=== PATIENT | male | born 1965 | race Caucasian/White ===

== ENCOUNTER 2016-05-30 09:59 | Emergency (ER) | payer MEDICARE, OTHER ==
[2016-05-30 10:46] LABS: RED BLOOD COUNT 5.44 M/UL (4.20-5.50); WHITE BLOOD COUNT 8.9 K/UL (4.5-11.0)
[2016-05-30 11:10] LABS: BUN/CREATININE RATIO 30 (0-10)
== END 2016-05-30 16:45 | disposition home or self-care (01) ==
LOC: ER1 09:59
PROVIDERS: Physician Assistant Medical
DX: L02.213 Cutaneous abscess of chest wall (principal); E11.65 Type 2 diabetes mellitus with hyperglycemia; I10 Essential (primary) hypertension; F17.290 Nicotine dependence, other tobacco product, uncomplicated; Z79.84 Long term (current) use of oral hypoglycemic drugs; Z79.899 Other long term (current) drug therapy
CPT/HCPCS: 10061; 36415; 80053; 82009; 82800; 82962; 85025; 87070; 87077; 87186; 87205; 96360; 96361; 96372; 99283; J1815; J7030

== ENCOUNTER → 2021-06-18 | Outpatient (CLI) | payer MEDICARE, OTHER | LOC: WCC 10:15 | DX: L89.154 Pressure ulcer of sacral region, stage 4 (principal); I95.9 Hypotension, unspecified; E11.622 Type 2 diabetes mellitus with other skin ulcer; N17.9 Acute kidney failure, unspecified; N20.0 Calculus of kidney; N15.1 Renal and perinephric abscess; G47.30 Sleep apnea, unspecified; I10 Essential (primary) hypertension; E11.36 Type 2 diabetes mellitus with diabetic cataract; H26.9 Unspecified cataract; E11.40 Type 2 diabetes mellitus with diabetic neuropathy, unspecified; Z79.4 Long term (current) use of insulin ==

== ENCOUNTER → 2021-06-22 | Outpatient (CLI) | payer MEDICARE, OTHER ==
[2021-06-22 11:20] LABS: HEMOGLOBIN 11.8 gm/dl (14.0-17.5); RED BLOOD COUNT 4.44 M/UL (4.20-5.50); WHITE BLOOD COUNT 10.8 K/UL (4.5-11.0)
== END ==
LOC: OPSV 10:24
PROVIDERS: Internal Medicine Infectious Disease
DX: N20.0 Calculus of kidney (principal)
CPT/HCPCS: 80076; 82565; 84520; 85025; 86140

== ENCOUNTER → 2021-06-22 | Outpatient (CLI) | payer MEDICARE, OTHER | END | disposition home or self-care (01) | LOC: WCC 07:17 | DX: L89.154 Pressure ulcer of sacral region, stage 4 (principal); E11.622 Type 2 diabetes mellitus with other skin ulcer; I95.9 Hypotension, unspecified; N17.9 Acute kidney failure, unspecified; N15.1 Renal and perinephric abscess; G47.30 Sleep apnea, unspecified; Z79.4 Long term (current) use of insulin ==

== ENCOUNTER → 2021-06-29 | Outpatient (CLI) | payer MEDICARE, OTHER | END | disposition home or self-care (01) | LOC: WCC 07:35 | DX: L89.154 Pressure ulcer of sacral region, stage 4 (principal); I95.9 Hypotension, unspecified; E11.622 Type 2 diabetes mellitus with other skin ulcer; N17.9 Acute kidney failure, unspecified; N20.0 Calculus of kidney; N15.1 Renal and perinephric abscess; G47.30 Sleep apnea, unspecified; Z79.4 Long term (current) use of insulin ==

== ENCOUNTER → 2021-06-29 | Outpatient (CLI) | payer MEDICARE, OTHER ==
[2021-06-29 11:32] LABS: HEMOGLOBIN 11.6 gm/dl (14.0-17.5); RED BLOOD COUNT 4.31 M/UL (4.20-5.50); WHITE BLOOD COUNT 13.2 K/UL (4.5-11.0)
== END ==
LOC: OPSV 11:00
PROVIDERS: Internal Medicine Infectious Disease
DX: N20.0 Calculus of kidney (principal); R91.1 Solitary pulmonary nodule
CPT/HCPCS: 80076; 82565; 84520; 85025; 86140

== ENCOUNTER → 2021-07-08 | Outpatient (CLI) | payer MEDICARE, OTHER | LOC: OPSV 14:00 | DX: Z45.2 Encounter for adjustment and management of vascular access device (principal) | CPT/HCPCS: G0463 ==

== ENCOUNTER → 2021-07-08 | Outpatient (CLI) | payer MEDICARE, OTHER | END | disposition home or self-care (01) | LOC: WCC 07:45 | DX: L89.154 Pressure ulcer of sacral region, stage 4 (principal); N17.9 Acute kidney failure, unspecified; I10 Essential (primary) hypertension; E11.622 Type 2 diabetes mellitus with other skin ulcer; N20.0 Calculus of kidney; N15.1 Renal and perinephric abscess; G47.30 Sleep apnea, unspecified; Z79.4 Long term (current) use of insulin; Z79.899 Other long term (current) drug therapy ==

== ENCOUNTER → 2021-07-17 | Outpatient (CLI) | payer MEDICARE, OTHER | END | disposition home or self-care (01) | LOC: WCC 07:30 | DX: L89.154 Pressure ulcer of sacral region, stage 4 (principal); I95.9 Hypotension, unspecified; E11.622 Type 2 diabetes mellitus with other skin ulcer; N17.9 Acute kidney failure, unspecified; N20.0 Calculus of kidney; N15.1 Renal and perinephric abscess; G47.30 Sleep apnea, unspecified; Z79.4 Long term (current) use of insulin; Z79.899 Other long term (current) drug therapy ==

== ENCOUNTER → 2021-07-22 | Outpatient (CLI) | payer MEDICARE, OTHER | END | disposition home or self-care (01) | LOC: WCC 07:18 | DX: L89.154 Pressure ulcer of sacral region, stage 4 (principal); N17.9 Acute kidney failure, unspecified; I10 Essential (primary) hypertension; E11.9 Type 2 diabetes mellitus without complications; G47.30 Sleep apnea, unspecified; Z79.4 Long term (current) use of insulin; Z79.899 Other long term (current) drug therapy ==

== ENCOUNTER → 2021-08-07 | Outpatient (CLI) | payer MEDICARE, OTHER | LOC: LAB 09:42 | DX: Z20.822 Contact with and (suspected) exposure to COVID-19 (principal) | CPT/HCPCS: U0002 ==

== ENCOUNTER → 2021-08-20 | Outpatient (CLI) | payer MEDICARE, OTHER | LOC: WCC 07:41 | PROC: 0KBP0ZZ Excision of Left Hip Muscle, Open Approach (ICD-10-PCS; principal; 2021-08-20) | PROC: 0KBN0ZZ Excision of Right Hip Muscle, Open Approach (ICD-10-PCS; 2021-08-20) | DX: L89.154 Pressure ulcer of sacral region, stage 4 (principal); E11.9 Type 2 diabetes mellitus without complications; N17.9 Acute kidney failure, unspecified; G47.30 Sleep apnea, unspecified ==

== ENCOUNTER 2021-09-01 10:55 | Inpatient (IN) | payer MEDICARE, OTHER ==
[~2021-09-01] VITALS: Ht 182.9 cm; Wt 113.9 kg
[2021-09-01 11:46] LABS: HEMOGLOBIN 11.8 gm/dl (14.0-17.5); RED BLOOD COUNT 4.28 M/UL (4.20-5.50); WHITE BLOOD COUNT 10.7 K/UL (4.5-11.0)
[2021-09-01 12:23] LABS: BUN/CREATININE RATIO 14 (0-10)
[2021-09-01] MEDS ORDERED: TRULICITY1.5 MG/0.5 SQ (15:17)
[2021-09-01] MEDS ORDERED: AMLODIPINE BESYL5 MG PO (15:17)
[2021-09-01] MEDS ORDERED: ZETIA10 MG PO (15:17)
[2021-09-01] MEDS ORDERED: LIPITOR TAB 2020 MG PO (15:17)
[2021-09-01] MEDS ORDERED: NATEGLINIDE120 MG PO (15:17)
[2021-09-01] MEDS ORDERED: LISINOPRIL40 MG PO (15:18)
[2021-09-01] MEDS ORDERED: LANTUS SOL100 UNIT/1 SQ (15:18)
[2021-09-01] MEDS ORDERED: HYDROCHLOROTHIA25 MG PO (15:18)
[2021-09-01] MEDS ORDERED: METFORMIN HCL1000 MG PO (15:18)
[2021-09-01] MEDS ORDERED: MELOXICAM15 MG PO (15:18)
[2021-09-01] MEDS ORDERED: ASPIRIN EC81 MG PO (15:19)
[2021-09-01] MEDS ORDERED: JANUVIA100 MG PO (15:19)
[2021-09-01] MEDS ORDERED: METOPROLOL SUC100 MG PO (15:19)
[2021-09-01] MEDS ORDERED: ZINC50 M1 PO (15:19)
[2021-09-01] MEDS ORDERED: OMEPRAZOLE20 M1 PO (15:20)
[2021-09-01] MEDS ORDERED: OMEGA-3 KRILL1 EAC3 PO (15:20)
[2021-09-02 02:54] LABS: HEMOGLOBIN 9.9 gm/dl (14.0-17.5); WHITE BLOOD COUNT 8.1 K/UL (4.5-11.0)
[2021-09-02 03:17] LABS: BUN/CREATININE RATIO 15 (0-10)
[2021-09-02 03:18] LABS: RED BLOOD COUNT 3.65 M/UL (4.20-5.50)
--- NOTE | 2021-09-02 13:38 | NUR ---
Contacted wound care clinic for consult and nonprofit fundraiser nurse will see patient in the morning
--- NOTE | 2021-09-02 15:08 | NUR ---
reported to dr. blackman patient wound care done at wound care clinic and received order for wound care.
[2021-09-03 03:54] LABS: HEMOGLOBIN 9.7 gm/dl (14.0-17.5); RED BLOOD COUNT 3.66 M/UL (4.20-5.50); WHITE BLOOD COUNT 7.4 K/UL (4.5-11.0)
[2021-09-03 04:04] LABS: BUN/CREATININE RATIO 17 (0-10)
--- NOTE | 2021-09-03 09:46 | NUR ---
RN SPOKE WITH WOUND CARE CLINIC ABOUT OUTPATIENT WOUND CARE AND FOLLOW-UP. WOUND CARE STAFF BRIAN STATED FOLLOW-UP COULD BE September AT 0945 AND WOUND CARE ORDER FROM YESTERDAY SHOULD BE CONTINUED ORDERED. RN MADE MD AND TECHNICAL SALES DIRECTOR AWARE.
[2021-09-03] MEDS ORDERED: LEVOFLOXACIN500 MG PO (09:58)
== END 2021-09-03 16:50 | disposition home or self-care (01) | DRG 698 ==
LOC: ER1 10:55 → M/S 15:01 → CDU 15:01 → M/S 20:10
PROVIDERS: Emergency Medicine; Physician Assistant; ADMIT Internal Medicine
DX: T83.593A Infection and inflammatory reaction due to other urinary stents, initial encounter (principal); A41.9 Sepsis, unspecified organism; Z20.822 Contact with and (suspected) exposure to COVID-19; L89.154 Pressure ulcer of sacral region, stage 4; N10 Acute pyelonephritis; Y83.8 Other surgical procedures as the cause of abnormal reaction of the patient, or of later complication, without mention of misadventure at the time of the procedure; E11.9 Type 2 diabetes mellitus without complications; F17.290 Nicotine dependence, other tobacco product, uncomplicated; E87.6 Hypokalemia; I10 Essential (primary) hypertension; I95.9 Hypotension, unspecified; Z79.4 Long term (current) use of insulin; Z79.01 Long term (current) use of anticoagulants; Z79.82 Long term (current) use of aspirin; Z87.442 Personal history of urinary calculi; Z99.3 Dependence on wheelchair; Z83.3 Family history of diabetes mellitus; Z82.49 Family history of ischemic heart disease and other diseases of the circulatory system; Z80.9 Family history of malignant neoplasm, unspecified
CPT/HCPCS: 36415; 71045; 72131; 80053; 81001; 82550; 82553; 82962; 83036; 83605; 84132; 84484; 85025; 86140; 87040; 87077; 87086; 87186; 93005; 96374; 99285; J1650; J2185

== ENCOUNTER → 2021-09-01 | Outpatient (CLI) | payer MEDICARE, OTHER ==
[~2021-09-01] MED LIST: AMLODIPINE BESYL5 MG PO; ASPIRIN EC81 MG PO; HYDROCHLOROTHIA25 MG PO; JANUVIA100 MG PO; LANTUS SOL100 UNIT/1 SQ; LEVOFLOXACIN500 MG PO; LIPITOR TAB 2020 MG PO; LISINOPRIL40 MG PO; MELOXICAM15 MG PO; METFORMIN HCL1000 MG PO; METOPROLOL SUC100 MG PO; NATEGLINIDE120 MG PO; OMEGA-3 KRILL1 EAC3 PO; OMEPRAZOLE20 M1 PO; TRULICITY1.5 MG/0.5 SQ; ZETIA10 MG PO; ZINC50 M1 PO
== END ==
LOC: WCC 07:43
DX: E11.622 Type 2 diabetes mellitus with other skin ulcer (principal); L89.154 Pressure ulcer of sacral region, stage 4; I95.9 Hypotension, unspecified; N17.9 Acute kidney failure, unspecified; N20.0 Calculus of kidney; N15.1 Renal and perinephric abscess; G47.30 Sleep apnea, unspecified
CPT/HCPCS: G0463

== ENCOUNTER → 2021-09-07 | Outpatient (CLI) | payer MEDICARE, OTHER | END | disposition home or self-care (01) | LOC: WCC 07:18 | DX: L89.154 Pressure ulcer of sacral region, stage 4 (principal); I95.9 Hypotension, unspecified; E11.622 Type 2 diabetes mellitus with other skin ulcer; N17.9 Acute kidney failure, unspecified; N20.0 Calculus of kidney; N15.1 Renal and perinephric abscess; G47.30 Sleep apnea, unspecified; Z79.4 Long term (current) use of insulin ==

== ENCOUNTER → 2021-09-25 | Outpatient (CLI) | payer MEDICARE, OTHER | LOC: WCC 07:12 | DX: L89.154 Pressure ulcer of sacral region, stage 4 (principal); I95.9 Hypotension, unspecified; E11.622 Type 2 diabetes mellitus with other skin ulcer; N17.9 Acute kidney failure, unspecified; N20.0 Calculus of kidney; N15.1 Renal and perinephric abscess; G47.30 Sleep apnea, unspecified; I10 Essential (primary) hypertension; E11.36 Type 2 diabetes mellitus with diabetic cataract; H26.9 Unspecified cataract; E11.40 Type 2 diabetes mellitus with diabetic neuropathy, unspecified; Z79.4 Long term (current) use of insulin; Z95.828 Presence of other vascular implants and grafts ==

== ENCOUNTER → 2021-10-09 | Outpatient (CLI) | payer MEDICARE, OTHER | LOC: WCC 07:16 | DX: L89.154 Pressure ulcer of sacral region, stage 4 (principal); I95.9 Hypotension, unspecified; E11.622 Type 2 diabetes mellitus with other skin ulcer; N17.9 Acute kidney failure, unspecified; N20.0 Calculus of kidney; N15.1 Renal and perinephric abscess; G47.30 Sleep apnea, unspecified; E11.36 Type 2 diabetes mellitus with diabetic cataract; H26.9 Unspecified cataract; E11.40 Type 2 diabetes mellitus with diabetic neuropathy, unspecified; Z79.4 Long term (current) use of insulin ==

== ENCOUNTER → 2021-10-29 | Outpatient (CLI) | payer MEDICARE, OTHER ==
[~2021-10-29] MED LIST changes: +ASPIRIN CHEWABL81 MG PO; +ATORVASTATIN CA40 MG PO; +PLAVIX75 MG PO
== END ==
LOC: WCC 07:21
DX: E11.622 Type 2 diabetes mellitus with other skin ulcer (principal); L89.154 Pressure ulcer of sacral region, stage 4; N17.9 Acute kidney failure, unspecified; N20.0 Calculus of kidney; N15.1 Renal and perinephric abscess; G47.30 Sleep apnea, unspecified; I95.9 Hypotension, unspecified; Z79.4 Long term (current) use of insulin

== ENCOUNTER 2021-11-01 22:16 | Emergency (ER) | payer MEDICARE, OTHER ==
[2021-11-01 23:42] LABS: HEMOGLOBIN 8.8 gm/dl (14.0-17.5); RED BLOOD COUNT 3.22 M/UL (4.20-5.50); WHITE BLOOD COUNT 12.4 K/UL (4.5-11.0)
[2021-11-02 07:13] LABS: HEMOGLOBIN 8.2 gm/dl (14.0-17.5); RED BLOOD COUNT 3.02 M/UL (4.20-5.50); WHITE BLOOD COUNT 9.7 K/UL (4.5-11.0)
== END 2021-11-02 08:51 | disposition other institution (70) ==
LOC: ER1 22:16
PROVIDERS: Student in an Organized Health Care Education/Training Program
DX: N39.0 Urinary tract infection, site not specified (principal); N17.9 Acute kidney failure, unspecified; R58 Hemorrhage, not elsewhere classified; Z86.73 Personal history of transient ischemic attack (TIA), and cerebral infarction without residual deficits
CPT/HCPCS: 70450; 71045; 80053; 81001; 82550; 82553; 83605; 84484; 85025; 85610; 85730; 86850; 86900; 86901; 87040; 87077; 87086; 87186; 96374; 99285; J0696